=== PATIENT | male | born 1980 | race American Indian/Alaskan Native ===

== ENCOUNTER 2016-10-26 13:57 | Emergency (ER) | payer SELFPAY ==
[2016-10-26 14:40] VITALS: BP 119/78
--- NOTE | 2016-10-26 15:32 | XRay Report ---
LEFT FOREARM: History: Pain after trauma AP and lateral views of the forearm demonstrate normal mineralization and contours for this patient's age. No destructive changes are noted and the adjacent soft tissues are normal. IMPRESSION: Normal left forearm.
--- NOTE | 2016-10-26 15:33 | XRay Report ---
LEFT SHOULDER: History: Pain after trauma. Routine views demonstrate normal bony and soft tissue structures with normal joint alignment of the shoulder. IMPRESSION: Normal study.
[2016-10-26] MEDS ORDERED: NORCO 5/325 PO ONE (16:27)
--- NOTE | 2016-10-26 16:32 | Emergency Department Report ---
Upper Extremity - HPI Chief Complaint: Extremity Injury, Upper Stated Complaint: LEFT ARM LACERATION/INJURY Time Seen by Provider: 10/26/16 16:07 Upper Extremity: Left Elbow, Left Forearm, Left Wrist, Left Hand, Left Middle Finger Occurred When: Today (just prior to arrival) Mechanism: Fall Symptoms: Yes Pain with Movement (fingers, wrist, elbow), Yes Limited Range of Movement (left elbow, wrist, fingers), Yes Swelling (left 3rd finger, wrist, elbow), Yes Laceration or Abrasion (left posterior elbow), No Deformity, No Numbness, No Bruising/Ecchymosis Other History: Patient comes into the ER today with complaints of left elbow, left wrist, left hand pain following a fall off the back of a 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 Patient states that he missed the step of the ramp to come off the truck and he landed on his left arm when time to catch himself. Patient denies any headache, loss of consciousness, neck pain, back pain, abdominal pain, chest pain at this time. Patient does state that his last tetanus shot was in the past couple years. ED Review of Systems ROS: Stated complaint: LEFT ARM LACERATION/INJURY Other details as noted in HPI Constitutional: denies: chills, fever Eyes: denies: eye pain, eye discharge, vision change ENT: denies: ear pain, throat pain Respiratory: denies: cough, shortness of breath, wheezing Cardiovascular: denies: chest pain, palpitations Endocrine: no symptoms reported Gastrointestinal: denies: abdominal pain, nausea, diarrhea Genitourinary: denies: urgency, dysuria Musculoskeletal: joint swelling, arthralgia, myalgia. denies: back pain Skin: denies: rash, lesions Neurological: denies: headache, weakness, numbness, paresthesias Psychiatric: denies: anxiety, depression Hematological/Lymphatic: denies: easy bleeding, easy bruising ED Past Medical Hx - Past Medical History Previous Medical History?: No - Surgical History Past Surgical History?: Yes Additional Surgical History: hip replacement - Social History Smoking Status: Never Smoker Substance Use Type: None - Medications Home Medications: Home Medications Medication Instructions Recorded Confirmed Last Taken Type Cyclobenzaprine HCl [Flexeril 5 MG 5 mg PO TID #15 tab 10/26/16 Unknown Rx TAB] Naproxen [Naprosyn TAB] 500 mg PO BID #20 tablet 10/26/16 Unknown Rx traMADol [Ultram] 50 mg PO Q4HR PRN #20 tablet 10/26/16 Unknown Rx Upper Extremity Exam - Exam General: Vital signs noted. No distress. Alert and acting appropriately. Head and Torso: No HEENT Abnormality, No Neck Tenderness, No Chest/Lungs Abnormality, No Abdominal Tenderness, No Back Tenderness Shoulder Exam: Yes Normal Range of Motion in Shoulder, No Shoulder Tenderness, No Clavicle Tenderness, No Shoulder Deformity, No AC Joint Tenderness Arm Exam: No Arm/Humerus Tenderness, No Arm Deformity Elbow: Yes Elbow Tenderness (left posterior elbow tenderness with superficial abrasion noted over olecranon), No Normal Range of Motion in Elbow, No Elbow Deformity Forearm: Yes Forearm Tenderness (left forearm), Yes Pain with Pronation, Yes Pain with Supination, No Forearm Deformity Wrist: Yes Wrist Tenderness (left wrist), Yes Snuffbox Tenderness, No Normal ROM in Wrist (Limited range of motion secondary to pain), No Wrist Deformity, No Pain with Axial Thumb Compression Hand: Yes Hand Tenderness, Yes Digit Tenderness (left third finger with posterior swelling consistent of possible ganglion cyst), No Hand Deformity, No Normal ROM in Digit(s) (Limited range of motion of the third left finger secondary to pain), No Digit(s) Deformity, No Tendon Dysfunction CMS Exam: Yes Broken Skin (left posterior elbow abrasion), Yes Normal Distal Pulses, Yes Normal Capillary Refill, Yes Normal Distal Sensation ED Course Vital Signs 10/26/16 14:37 Temperature 98.3 F Pulse Rate 89 Respiratory 18 Rate Blood Pressure 119/78 O2 Sat by Pulse 100 Oximetry ED Medical Decision Making - Radiology Data Radiology results: report reviewed X-ray left shoulder, normal study X-ray left forearm, normal study, no fractures noted. - Medical Decision Making Patient is nontoxic and hemodynamically stable. Physical exam of patient is consistent with injury. I informed patient that x-rays are unremarkable but that patient was placed in a left sugar tong splint and sling due to patient's amount of tenderness on exam. I will refer patient to orthopedic for further evaluation if symptoms fail resolve or worsen. Also prescribed patient's medication for symptomatic relief. Patient is in agreement treatment plan patient is stable for discharge. Patient is neurovascularly intact distally after splint placement in the ER. Critical care attestation.: If time is entered above; I have spent that time in minutes in the direct care of this critically ill patient, excluding procedure time. ED Disposition Clinical Impression: Contusion of left arm, Left wrist sprain, Left arm pain Abrasion of left elbow Qualifiers: Encounter type: initial encounter Qualified Code(s): S50.312A - Abrasion of left elbow, initial encounter Disposition: TO HOME OR SELFCARE Is pt being admited?: No Does the pt Need Aspirin: No Condition: Good Instructions: Contusion in Adults (ED), Elbow Sprain (ED), Abrasion (ED), Wrist Sprain (ED) Prescriptions: Cyclobenzaprine HCl [Flexeril 5 MG TAB] 5 mg PO TID #15 tab Naproxen [Naprosyn TAB] 500 mg PO BID #20 tablet traMADol [Ultram] 50 mg PO Q4HR PRN #20 tablet PRN Reason: Pain Referrals: WANDA CHESTER MD [Staff Physician] - 3-5 Days Forms: Work/School Release Form(ED) Time of Disposition: 17:13
== END 2016-10-26 17:26 | disposition home or self-care (01) ==
LOC: ED 13:57
DX: S63.502A Unspecified sprain of left wrist, initial encounter (principal); S40.022A Contusion of left upper arm, initial encounter; S50.312A Abrasion of left elbow, initial encounter; Z96.649 Presence of unspecified artificial hip joint; V87.8XXA Person injured in other specified noncollision transport accidents involving motor vehicle (traffic), initial encounter; Y93.89 Activity, other specified; Y99.9 Unspecified external cause status; Y92.89 Other specified places as the place of occurrence of the external cause

== ENCOUNTER 2017-05-12 10:40 | Emergency (ER) | payer SELFPAY ==
[2017-05-12 10:51] VITALS: BP 111/69
[2017-05-12] MEDS ORDERED: PERCOCET 5/325 PO ONE (13:12)
[2017-05-12] MEDS ORDERED: MOTRIN PO ONE (13:12)
[2017-05-12] MEDS ORDERED: VEETIDS PO ONE (13:12)
--- NOTE | 2017-05-12 13:13 | Emergency Department Report ---
ED ENT HPI - General Chief complaint: Dental/Oral Stated complaint: TOOTH BROKE IN GUM Time Seen by Provider: 05/12/17 13:07 Source: patient, RN notes reviewed Mode of arrival: Ambulatory Limitations: No Limitations - History of Present Illness Initial comments: This is a 37-year-old gentleman who was previously unknown to this provider who presents to the ER with dentalgia and broken teeth, 14, 15, 16 after biting down on a biscuit. His pain increases with palpation, range of motion, eating, drinking. He is protecting his airway, and has no stridor or dysphonia. He has no headache, neck pain, chest pain, abdominal pain or shortness of breath MD complaint: tooth pain -: Gradual Location: tooth # (14, 15, 60) Severity: moderate Quality: sharp, dull Consistency: constant Improves with: rest Worsens with: eating Associated Symptoms: gum swelling, toothache. denies: fever, cough, pain with swallowing, sore throat, tinnitus, hearing loss, discharge from ear, rhinorrhea - Related Data Previous Rx's Medication Instructions Recorded Last Taken Type Cyclobenzaprine HCl [Flexeril 5 MG 5 mg PO TID #15 tab 10/26/16 Unknown Rx TAB] Naproxen [Naprosyn TAB] 500 mg PO BID #20 tablet 10/26/16 Unknown Rx traMADol [Ultram] 50 mg PO Q4HR PRN #20 tablet 10/26/16 Unknown Rx Acetaminophen [Tylenol Arthritis] 650 mg PO Q6HR PRN #30 tablet.er 05/12/17 Unknown Rx Chlorhexidine Mouthwash [Peridex] 15 ml MM BID #1 bottle 05/12/17 Unknown Rx Ibuprofen [Motrin] 600 mg PO Q8H PRN #30 tablet 05/12/17 Unknown Rx Penicillin V Potassium 500 mg PO BID #14 tablet 05/12/17 Unknown Rx oxyCODONE [Roxicodone] 5 mg PO Q6HR PRN #15 tablet 05/12/17 Unknown Rx Allergies Allergy/AdvReac Type Severity Reaction Status Date / Time No Known Allergies Allergy Verified 05/12/17 10:49 ED Dental HPI - General Chief complaint: Dental/Oral Stated complaint: TOOTH BROKE IN GUM Time Seen by Provider: 05/12/17 13:07 Source: patient Mode of arrival: Ambulatory Limitations: No Limitations - Related Data Previous Rx's Medication Instructions Recorded Last Taken Type Cyclobenzaprine HCl [Flexeril 5 MG 5 mg PO TID #15 tab 10/26/16 Unknown Rx TAB] Naproxen [Naprosyn TAB] 500 mg PO BID #20 tablet 10/26/16 Unknown Rx traMADol [Ultram] 50 mg PO Q4HR PRN #20 tablet 10/26/16 Unknown Rx Acetaminophen [Tylenol Arthritis] 650 mg PO Q6HR PRN #30 tablet.er 05/12/17 Unknown Rx Chlorhexidine Mouthwash [Peridex] 15 ml MM BID #1 bottle 05/12/17 Unknown Rx Ibuprofen [Motrin] 600 mg PO Q8H PRN #30 tablet 05/12/17 Unknown Rx Penicillin V Potassium 500 mg PO BID #14 tablet 05/12/17 Unknown Rx oxyCODONE [Roxicodone] 5 mg PO Q6HR PRN #15 tablet 05/12/17 Unknown Rx Allergies Allergy/AdvReac Type Severity Reaction Status Date / Time No Known Allergies Allergy Verified 05/12/17 10:49 ED Review of Systems ROS: Stated complaint: TOOTH BROKE IN GUM Other details as noted in HPI ED Past Medical Hx - Past Medical History Previous Medical History?: No - Surgical History Past Surgical History?: Yes Additional Surgical History: hip replacement - Social History Smoking Status: Never Smoker Substance Use Type: None - Medications Home Medications: Home Medications Medication Instructions Recorded Confirmed Last Taken Type Cyclobenzaprine HCl [Flexeril 5 MG 5 mg PO TID #15 tab 10/26/16 Unknown Rx TAB] Naproxen [Naprosyn TAB] 500 mg PO BID #20 tablet 10/26/16 Unknown Rx traMADol [Ultram] 50 mg PO Q4HR PRN #20 tablet 10/26/16 Unknown Rx Acetaminophen [Tylenol Arthritis] 650 mg PO Q6HR PRN #30 tablet.er 05/12/17 Unknown Rx Chlorhexidine Mouthwash [Peridex] 15 ml MM BID #1 bottle 05/12/17 Unknown Rx Ibuprofen [Motrin] 600 mg PO Q8H PRN #30 tablet 05/12/17 Unknown Rx Penicillin V Potassium 500 mg PO BID #14 tablet 05/12/17 Unknown Rx oxyCODONE [Roxicodone] 5 mg PO Q6HR PRN #15 tablet 05/12/17 Unknown Rx ED Physical Exam - General Limitations: No Limitations General appearance: alert, in no apparent distress - Head Head exam: Present: atraumatic, normocephalic - Eye Eye exam: Present: normal appearance, EOMI. Absent: nystagmus - ENT ENT exam: Present: normal exam, normal orophraynx, mucous membranes moist, other (patient has poor dentition. Numerous dental caries noted. Fractured teeth #14, 15 noted. No obvious abscess. No stridor. No sublingual tenderness.) - Neck Neck exam: Present: normal inspection, full ROM. Absent: lymphadenopathy - Respiratory Respiratory exam: Present: normal lung sounds bilaterally. Absent: respiratory distress - Cardiovascular Cardiovascular Exam: Present: regular rate, normal rhythm, normal heart sounds. Absent: systolic murmur, diastolic murmur, rubs, gallop - GI/Abdominal GI/Abdominal exam: Present: soft, normal bowel sounds. Absent: distended, tenderness, guarding, rebound, rigid, pulsatile mass - Rectal Rectal exam: Present: deferred - Extremities Exam Extremities exam: Present: normal inspection, full ROM. Absent: tenderness, pedal edema, joint swelling - Back Exam Back exam: Present: normal inspection, full ROM. Absent: tenderness, CVA tenderness (R), paraspinal tenderness, vertebral tenderness - Neurological Exam Neurological exam: Present: alert, oriented X3, CN II-XII intact, normal gait, other (Extraocular movements intact. Tongue midline. No facial droop. Facial sensation intact to light touch in the V1, V2, V3 distribution bilaterally. 5 and 5 strength in 4 extremities.. Sensation is intact to light touch in 4 extremities.). Absent: motor sensory deficit - Psychiatric Psychiatric exam: Present: normal affect, normal mood - Skin Skin exam: Present: warm, dry, intact, normal color. Absent: rash ED Course Vital Signs 05/12/17 05/12/17 05/12/17 10:49 13:29 13:30 Temperature 98.3 F Pulse Rate 87 Respiratory 18 20 20 Rate Blood Pressure 111/69 O2 Sat by Pulse 98 Oximetry ED Medical Decision Making - Lab Data Vital Signs 05/12/17 05/12/17 05/12/17 10:49 13:29 13:30 Temperature 98.3 F Pulse Rate 87 Respiratory 18 20 20 Rate Blood Pressure 111/69 O2 Sat by Pulse 98 Oximetry - Medical Decision Making Differential diagnosis, including but not limited to: Dentalgia, dental caries, dental fracture Assessment and plan: 37-year-old male with poor dentition and dentalgia. He is afebrile with reassuring vital signs and protecting his airway at this time. The importance of proper dental hygiene was emphasized to the patient. Patient will be referred to a local low-cost dental clinics, and will be discharged with pain medication, chlorhexidine, penicillin. Return precautions reviewed. Critical care attestation.: If time is entered above; I have spent that time in minutes in the direct care of this critically ill patient, excluding procedure time. ED Disposition Clinical Impression: Dentalgia Disposition: TO HOME OR SELFCARE Is pt being admited?: No Does the pt Need Aspirin: No Condition: Stable Instructions: Dental Caries (ED), Toothache (ED) Additional Instructions: Take the medications as directed. Follow up with a dentist as soon as possible. Return to the ER right away with fevers, chills, lethargy, irritability, projectile vomiting, change in mental status, confusion, inability to tolerate liquid feeds, inability to speak, inability to breathe. Referrals: PRIMARY CARE, [Primary Care Provider] - 3-5 Days [facility] [Outside] - 3-5 Days
== END 2017-05-12 14:14 | disposition home or self-care (01) ==
LOC: ED 10:40
DX: K08.89 Other specified disorders of teeth and supporting structures (principal)
CPT/HCPCS: 99282

== ENCOUNTER 2017-05-28 16:46 | Emergency (ER) | payer SELFPAY | END 2017-05-28 19:13 | disposition left against medical advice (07) | LOC: ED 16:46 | DX: Z53.21 Procedure and treatment not carried out due to patient leaving prior to being seen by health care provider (principal) ==

== ENCOUNTER 2017-05-29 09:25 | Emergency (ER) | payer SELFPAY ==
[2017-05-29 10:43] VITALS: BP 109/70
[2017-05-29] MEDS ORDERED: MOTRIN PO ONE (11:25)
[2017-05-29] MEDS ORDERED: ROCEPHIN IM ONE (11:25)
[2017-05-29] MEDS ORDERED: XYLOCAINE 1% MPF 5 mL INFILTRATI ONE (11:25)
[2017-05-29] MEDS ORDERED: ZITHROMAX PO ONE (11:25)
--- NOTE | 2017-05-29 11:29 | Emergency Department Report ---
ED Male HPI - General Chief complaint: Medical Clearance Stated complaint: STD CHECK Time Seen by Provider: 05/29/17 11:24 Source: patient Mode of arrival: Ambulatory Limitations: No Limitations - History of Present Illness Initial comments: This is a 37-year-old male nontoxic, well nourished in appearance, no acute signs of distress presents to the ED for treatment of gonorrhea chlamydia. Patient also stated he has a toothache starting this morning. He states his girlfriend was diagnosed with gonorrhea chlamydia so he was be treated. Patient denies any penile discharge, testicular pain, testicular swelling, fever , chills, nausea, vomiting, chest pain shortness of breath. Patient denies any back pain, dysuria, or polyuria or hematuria. Patient denies any allergies or past medical history. Patient denies any facial swelling. MD Complaint: other (possible STD) -: week(s) (1) Radiation: none Severity scale (0 -10): 0 Improves with: none Worsens with: none denies other symptoms. denies: discharge, swelling, mass, rash, urinary retention, blood in urine, dysuria, fever, nausea/vomiting, incontinence - Related Data Previous Rx's Medication Instructions Recorded Last Taken Type Cyclobenzaprine HCl [Flexeril 5 MG 5 mg PO TID #15 tab 10/26/16 Unknown Rx TAB] Naproxen [Naprosyn TAB] 500 mg PO BID #20 tablet 10/26/16 Unknown Rx traMADol [Ultram] 50 mg PO Q4HR PRN #20 tablet 10/26/16 Unknown Rx Acetaminophen [Tylenol Arthritis] 650 mg PO Q6HR PRN #30 tablet.er 05/12/17 Unknown Rx Chlorhexidine Mouthwash [Peridex] 15 ml MM BID #1 bottle 05/12/17 Unknown Rx Ibuprofen [Motrin] 600 mg PO Q8H PRN #30 tablet 05/12/17 Unknown Rx Penicillin V Potassium 500 mg PO BID #14 tablet 05/12/17 Unknown Rx oxyCODONE [Roxicodone] 5 mg PO Q6HR PRN #15 tablet 05/12/17 Unknown Rx Allergies Allergy/AdvReac Type Severity Reaction Status Date / Time No Known Allergies Allergy Verified 05/12/17 10:49 ED Review of Systems ROS: Stated complaint: STD CHECK Other details as noted in HPI Constitutional: denies: chills, fever Eyes: denies: eye pain, eye discharge, vision change ENT: denies: ear pain, throat pain Respiratory: denies: cough, shortness of breath, wheezing Cardiovascular: denies: chest pain, palpitations Endocrine: no symptoms reported Gastrointestinal: denies: abdominal pain, nausea, diarrhea Genitourinary: denies: urgency, dysuria Musculoskeletal: denies: back pain, joint swelling, arthralgia Skin: denies: rash, lesions Neurological: denies: headache, weakness, paresthesias Psychiatric: denies: anxiety, depression Hematological/Lymphatic: denies: easy bleeding, easy bruising ED Past Medical Hx - Surgical History Additional Surgical History: hip replacement - Social History Smoking Status: Never Smoker Substance Use Type: None - Medications Home Medications: Home Medications Medication Instructions Recorded Confirmed Last Taken Type Cyclobenzaprine HCl [Flexeril 5 MG 5 mg PO TID #15 tab 10/26/16 Unknown Rx TAB] Naproxen [Naprosyn TAB] 500 mg PO BID #20 tablet 10/26/16 Unknown Rx traMADol [Ultram] 50 mg PO Q4HR PRN #20 tablet 10/26/16 Unknown Rx Acetaminophen [Tylenol Arthritis] 650 mg PO Q6HR PRN #30 tablet.er 05/12/17 Unknown Rx Chlorhexidine Mouthwash [Peridex] 15 ml MM BID #1 bottle 05/12/17 Unknown Rx Ibuprofen [Motrin] 600 mg PO Q8H PRN #30 tablet 05/12/17 Unknown Rx Penicillin V Potassium 500 mg PO BID #14 tablet 05/12/17 Unknown Rx oxyCODONE [Roxicodone] 5 mg PO Q6HR PRN #15 tablet 05/12/17 Unknown Rx ED Physical Exam - General Limitations: No Limitations General appearance: alert, in no apparent distress - Head Head exam: Present: atraumatic, normocephalic - Eye Eye exam: Present: normal appearance - ENT ENT exam: Present: normal exam, normal orophraynx, mucous membranes moist, TM's normal bilaterally, normal external ear exam - Expanded ENT Exam Expanded Ear exam: Present: normal external inspection Mouth exam: Present: normal external inspection, tongue normal. Absent: drooling, trismus, muffled voice, tongue elevation, laceration Teeth exam: Present: fractured tooth # (31), other (No abscess or swelling noted. ). Absent: dental caries, dental tenderness #, gingival enlargement 1 - Fractured Throat exam: Positive: normal inspection. Negative: tonsillar erythema, tonsillomegaly, tonsillar exudate, R peritonsillar mass, L peritonsillar mass - Neck Neck exam: Present: normal inspection - Respiratory Respiratory exam: Present: normal lung sounds bilaterally. Absent: respiratory distress - Cardiovascular Cardiovascular Exam: Present: regular rate, normal rhythm. Absent: systolic murmur, diastolic murmur, rubs, gallop - GI/Abdominal GI/Abdominal exam: Present: soft, normal bowel sounds - Rectal Rectal exam: Present: deferred - exam: Present: normal inspection. Absent: testicular tenderness, urethral discharge, scrotal swelling, vertical testicular lie External exam: Present: normal external exam. Absent: erythema, swelling, lesions, lacerations, ecchymosis, bleeding - Extremities Exam Extremities exam: Present: normal inspection - Back Exam Back exam: Present: normal inspection - Neurological Exam Neurological exam: Present: alert, oriented X3 - Psychiatric Psychiatric exam: Present: normal affect, normal mood - Skin Skin exam: Present: warm, dry, intact, normal color. Absent: rash ED Course Vital Signs 05/29/17 10:40 Temperature 98.1 F Pulse Rate 72 Respiratory 18 Rate Blood Pressure 109/70 O2 Sat by Pulse 100 Oximetry - Reevaluation(s) Reevaluation #1: 05/29/17 11:27 Patient is speaking in full sentences with no signs of distress noted. ED Medical Decision Making - Medical Decision Making this is a 37-year-old male that presents with possible STD exposure and toothache. Patient is stable and was examined by me. Patient refused to give urine for gonorrhea and chlamydia that he just wants to be treated empirically. Patient received Rocephin and azithromycin as well as Motrin for pain of toothache. Patient was instructed Follow-up with a primary care doctor in 3-5 days or if symptoms worsen and continue return to emergency room as soon as possible. At time of discharge, the patient does not seem toxic or ill in appearance. No acute signs of distress noted. Patient agrees to discharge treatment plan of care. No further questions noted by the patient. This chart is dictated with using [employer] Critical care attestation.: If time is entered above; I have spent that time in minutes in the direct care of this critically ill patient, excluding procedure time. ED Disposition Clinical Impression: Possible exposure to STD, Toothache Disposition: DC- TO HOME OR SELFCARE Is pt being admited?: No Does the pt Need Aspirin: No Condition: Stable Instructions: Safe Sex (ED) Additional Instructions: Follow-up with a primary care doctor in 3-5 days or if symptoms worsen and continue return to emergency room as soon as possible. Referrals: PRIMARY CAREMD [Referring] - 3-5 Days DANA FUENTES MD [Staff Physician] - 3-5 Days [facility] [Outside] - 3-5 Days [facility] [Outside] - 3-5 Days Forms: Work/School Release Form(ED)
== END 2017-05-29 14:38 | disposition home or self-care (01) ==
LOC: ED 09:25
DX: K08.89 Other specified disorders of teeth and supporting structures (principal); Z20.2 Contact with and (suspected) exposure to infections with a predominantly sexual mode of transmission
CPT/HCPCS: 96372; 99282; J0696; 99283

== ENCOUNTER 2017-09-14 22:15 | Emergency (ER) | payer SELFPAY ==
[2017-09-14 23:06] VITALS: BP 118/65
[2017-09-14] MEDS ORDERED: ULTRAM PO ONE (23:56)
[2017-09-14] MEDS ORDERED: ULTRAM ONE (23:56)
--- NOTE | 2017-09-15 00:17 | Emergency Department Report ---
ED ENT HPI - General Chief complaint: Dental/Oral Stated complaint: TOOTHACHE Time Seen by Provider: 09/15/17 00:11 Source: patient Mode of arrival: Ambulatory Limitations: No Limitations - History of Present Illness Initial comments: toothache x 3 days hx of dental carries, states 5/10 dental pain right lower aching throbbing exacerbated by hot and cold sensation pt state unable to see dentist, requesting referral to same, pt is tolerating po intake, there is no ear or throat pain . - Related Data Previous Rx's Medication Instructions Recorded Last Taken Type Cyclobenzaprine HCl [Flexeril 5 MG 5 mg PO TID #15 tab 10/26/16 Unknown Rx TAB] Naproxen [Naprosyn TAB] 500 mg PO BID #20 tablet 10/26/16 Unknown Rx traMADol [Ultram] 50 mg PO Q4HR PRN #20 tablet 10/26/16 Unknown Rx Acetaminophen [Tylenol Arthritis] 650 mg PO Q6HR PRN #30 tablet.er 05/12/17 Unknown Rx Chlorhexidine Mouthwash [Peridex] 15 ml MM BID #1 bottle 05/12/17 Unknown Rx Ibuprofen [Motrin] 600 mg PO Q8H PRN #30 tablet 05/12/17 Unknown Rx Penicillin V Potassium 500 mg PO BID #14 tablet 05/12/17 Unknown Rx oxyCODONE [Roxicodone] 5 mg PO Q6HR PRN #15 tablet 05/12/17 Unknown Rx Amoxicillin 500 mg PO TID #30 capsule 09/15/17 Unknown Rx Chlorhexidine Mouthwash [Peridex] 15 ml MM BID #1 bottle 09/15/17 Unknown Rx traMADol [Ultram] 50 mg PO Q8HR PRN #15 tablet 09/15/17 Unknown Rx Allergies Allergy/AdvReac Type Severity Reaction Status Date / Time No Known Allergies Allergy Verified 05/12/17 10:49 ED Dental HPI - General Chief complaint: Dental/Oral Stated complaint: TOOTHACHE Time Seen by Provider: 09/15/17 00:11 Source: patient Mode of arrival: Ambulatory Limitations: No Limitations - History of Present Illness MD complaint: tooth pain - Related Data Previous Rx's Medication Instructions Recorded Last Taken Type Cyclobenzaprine HCl [Flexeril 5 MG 5 mg PO TID #15 tab 10/26/16 Unknown Rx TAB] Naproxen [Naprosyn TAB] 500 mg PO BID #20 tablet 10/26/16 Unknown Rx traMADol [Ultram] 50 mg PO Q4HR PRN #20 tablet 10/26/16 Unknown Rx Acetaminophen [Tylenol Arthritis] 650 mg PO Q6HR PRN #30 tablet.er 05/12/17 Unknown Rx Chlorhexidine Mouthwash [Peridex] 15 ml MM BID #1 bottle 05/12/17 Unknown Rx Ibuprofen [Motrin] 600 mg PO Q8H PRN #30 tablet 05/12/17 Unknown Rx Penicillin V Potassium 500 mg PO BID #14 tablet 05/12/17 Unknown Rx oxyCODONE [Roxicodone] 5 mg PO Q6HR PRN #15 tablet 05/12/17 Unknown Rx Amoxicillin 500 mg PO TID #30 capsule 09/15/17 Unknown Rx Chlorhexidine Mouthwash [Peridex] 15 ml MM BID #1 bottle 09/15/17 Unknown Rx traMADol [Ultram] 50 mg PO Q8HR PRN #15 tablet 09/15/17 Unknown Rx Allergies Allergy/AdvReac Type Severity Reaction Status Date / Time No Known Allergies Allergy Verified 05/12/17 10:49 ED Review of Systems ROS: Stated complaint: TOOTHACHE Other details as noted in HPI Constitutional: denies: chills, fever Eyes: as per HPI ENT: dental pain Respiratory: denies: cough, shortness of breath, wheezing Cardiovascular: denies: chest pain, palpitations Endocrine: no symptoms reported Gastrointestinal: denies: abdominal pain, nausea, diarrhea Genitourinary: denies: urgency, dysuria Musculoskeletal: denies: back pain, joint swelling, arthralgia Skin: denies: rash, lesions Neurological: denies: headache, weakness, paresthesias Psychiatric: denies: anxiety, depression Hematological/Lymphatic: denies: easy bleeding, easy bruising ED Past Medical Hx - Past Medical History Previous Medical History?: No - Surgical History Past Surgical History?: Yes Additional Surgical History: hip replacement - Social History Smoking Status: Never Smoker Substance Use Type: None - Medications Home Medications: Home Medications Medication Instructions Recorded Confirmed Last Taken Type Cyclobenzaprine HCl [Flexeril 5 MG 5 mg PO TID #15 tab 10/26/16 Unknown Rx TAB] Naproxen [Naprosyn TAB] 500 mg PO BID #20 tablet 10/26/16 Unknown Rx traMADol [Ultram] 50 mg PO Q4HR PRN #20 tablet 10/26/16 Unknown Rx Acetaminophen [Tylenol Arthritis] 650 mg PO Q6HR PRN #30 tablet.er 05/12/17 Unknown Rx Chlorhexidine Mouthwash [Peridex] 15 ml MM BID #1 bottle 05/12/17 Unknown Rx Ibuprofen [Motrin] 600 mg PO Q8H PRN #30 tablet 05/12/17 Unknown Rx Penicillin V Potassium 500 mg PO BID #14 tablet 05/12/17 Unknown Rx oxyCODONE [Roxicodone] 5 mg PO Q6HR PRN #15 tablet 05/12/17 Unknown Rx Amoxicillin 500 mg PO TID #30 capsule 09/15/17 Unknown Rx Chlorhexidine Mouthwash [Peridex] 15 ml MM BID #1 bottle 09/15/17 Unknown Rx traMADol [Ultram] 50 mg PO Q8HR PRN #15 tablet 09/15/17 Unknown Rx ED Physical Exam - General Limitations: No Limitations General appearance: alert, in no apparent distress - Head Head exam: Present: atraumatic, normocephalic - Eye Eye exam: Present: normal appearance - ENT ENT exam: Present: mucous membranes moist, TM's normal bilaterally - Expanded ENT Exam Expanded Mouth exam: Absent: trismus Teeth exam: Present: dental caries, fractured tooth # (29), dental tenderness # (29). Absent: gingival enlargement 1 - Fractured, Dental Tenderness, Other (dental carries) Throat exam: Positive: normal inspection - Neck Neck exam: Present: normal inspection, full ROM. Absent: tenderness, lymphadenopathy, thyromegaly - Respiratory Respiratory exam: Present: normal lung sounds bilaterally. Absent: respiratory distress, wheezes, stridor - Cardiovascular Cardiovascular Exam: Present: regular rate, normal rhythm. Absent: systolic murmur, diastolic murmur, rubs, gallop - GI/Abdominal GI/Abdominal exam: Present: soft, normal bowel sounds - Rectal Rectal exam: Present: deferred - Extremities Exam Extremities exam: Present: normal inspection - Back Exam Back exam: Present: normal inspection - Neurological Exam Neurological exam: Present: alert, oriented X3 - Psychiatric Psychiatric exam: Present: normal affect, normal mood - Skin Skin exam: Present: warm, dry, intact, normal color. Absent: rash ED Course Vital Signs 09/14/17 23:01 Temperature 98.6 F Pulse Rate 90 Respiratory 18 Rate Blood Pressure 118/65 O2 Sat by Pulse 98 Oximetry ED Medical Decision Making - Medical Decision Making this cute on chronic dental carries with focal abscess, mild gum erythema swelling no facial swelling uvula midline no stridor plan: ultram, peridex, amoxicillin follow up with [facility] services pt verbalized agreement and understanding of same, pt for dc to home in stable condtion at this time. Critical care attestation.: If time is entered above; I have spent that time in minutes in the direct care of this critically ill patient, excluding procedure time. ED Disposition Clinical Impression: Infected dental carries Disposition: DC-01 TO HOME OR SELFCARE Is pt being admited?: No Does the pt Need Aspirin: No Condition: Good Instructions: Dental Caries (ED) Prescriptions: Amoxicillin 500 mg PO TID #30 capsule Chlorhexidine Mouthwash [Peridex] 15 ml MM BID #1 bottle traMADol [Ultram] 50 mg PO Q8HR PRN #15 tablet PRN Reason: Pain Referrals: [facility] [Outside] - 3-5 Days Forms: Work/School Release Form(ED) Time of Disposition: 00:19
== END 2017-09-15 00:30 | disposition home or self-care (01) ==
LOC: ED 22:15
DX: K02.9 Dental caries, unspecified (principal)
CPT/HCPCS: 99282